=== PATIENT | female | born 1985 | race Caucasian/White ===

== ENCOUNTER 2017-11-23 06:10 | Inpatient (IN) | payer MEDICAID ==
[2017-11-23] MEDS ORDERED: LACTATED RINGER'S 1,000 ML IV (07:00)
[2017-11-23 07:11] LABS: ADD MAN DIFF? NO
[2017-11-23] MEDS ORDERED: AMPICILLIN 2 GM/NS (PMX) 100 ML (07:11)
[2017-11-23] MEDS ORDERED: CARBOPROST 250 MCG INJ IM ×2 (07:30→15:00)
[2017-11-23] MEDS ORDERED: MISOPROSTOL 200 MCG TAB PR ×2 (07:30→15:00)
[2017-11-23] MEDS ORDERED: METHYLERGONOVINE 0.2 MG INJ IM ×2 (07:30→15:00)
[2017-11-23 07:34] LABS: INR 0.96; PROTIME 12.9 Sec (11.9-14.9)
[2017-11-23 07:35] LABS: PARTIAL THROMBOPLASTIN TIME 30.2 Sec (25.0-35.0)
[2017-11-23] MEDS: AMPICILLIN 2 GM/NS (PMX) 100 ML IV (07:38)
[2017-11-23] MEDS: LACTATED RINGER'S 1,000 ML IV ×3 (07:38→14:57)
[2017-11-23] MEDS ORDERED: morphine SULFATE/PF (10 MG/10 ML) INJ (07:40)
[2017-11-23] MEDS ORDERED: METOCLOPRAMIDE 10 MG INJ (07:41)
[2017-11-23] MEDS ORDERED: OXYTOCIN 10 UNIT INJ (07:41)
[2017-11-23] MEDS ORDERED: FAMOTIDINE 20 MG INJ (07:41)
[2017-11-23 08:05] LABS: GLUCOSE 70 mg/dl (70-220)
[2017-11-23 08:18] LABS: WHITE BLOOD COUNT 9.5 10^3/ul (4.8-10.8)
[2017-11-23 08:18] LABS: BASOPHILS % 0.2 % (0.0-2.0); EOSINOPHILS # 0.1 10^3/ul (0.0-0.5); EOSINOPHILS % 0.6 % (0.0-7.0); HEMATOCRIT 37.7 % (37.0-47.0); HEMOGLOBIN 12.7 g/dl (12.0-16.0); LYMPHOCYTES # 2.2 10^3/ul (0.8-2.9); LYMPHOCYTES % 23.5 % (15.0-51.0); MEAN CORPUSCULAR HEMOGLOBIN 29.4 pg (29.0-33.0); MEAN CORPUSCULAR HGB CONC 33.7 g/dl (32.0-37.0); MEAN CORPUSCULAR VOLUME 87.3 fl (82.0-101.0); MONOCYTE # 0.6 10^3/ul (0.3-0.9); MONOCYTES % 5.8 % (0.0-11.0); NEUTROPHIL # 6.6 10^3/ul (1.6-7.5); NEUTROPHILS % 69.5 % (39.0-77.0); PLATELET COUNT 226 10^3/UL (140-415); RED BLOOD COUNT 4.32 10^6/ul (4.20-5.40); RED CELL DISTRIBUTION WIDTH 14.7 % (11.5-14.5)
[2017-11-23] MEDS: METOCLOPRAMIDE 10 MG INJ IV (08:30)
[2017-11-23] MEDS: ONDANSETRON 4 MG INJ IV (08:30)
[2017-11-23] MEDS: FAMOTIDINE 20 MG INJ IV (08:31)
[2017-11-23 08:34] LABS: HEPATITIS B SURFACE ANTIGEN NEGATIVE (NEGATIVE)
[2017-11-23] MEDS ORDERED: BUPIVACAINE 0.75%/DEXT (SPINAL) 2 ML INJ (08:46)
[2017-11-23] MEDS: CEFAZOLIN 2 GM/50 ML (PMX) 50 ML IV ×2 (09:00→11:24)
[2017-11-23] MEDS ORDERED: HYDROmorphONE (0.2 MG/ML) 10ML SYG IV (10:00)
[2017-11-23] MEDS ORDERED: FENTAnyl 50 MCG/ML VIAL IV ×2 (10:00)
[2017-11-23] MEDS ORDERED: MEPERIDINE 25 MG INJ IV (10:00)
[2017-11-23] MEDS ORDERED: METOCLOPRAMIDE 10 MG INJ IV (10:00)
[2017-11-23] MEDS ORDERED: KETOROLAC 30 MG INJ IV (10:00)
[2017-11-23] MEDS ORDERED: ONDANSETRON 4 MG INJ IV ×2 (10:00→15:00)
[2017-11-23] MEDS: HYDROmorphONE (0.2 MG/ML) 10ML SYG IV (11:07)
[2017-11-23] MEDS: DIPHENHYDRAMINE 50 MG INJ IV (11:08)
[2017-11-23 11:22] LABS: ADD UMIC NO; UR ASCORBIC ACID NEGATIVE (NEGATIVE); UR BILIRUBIN (Dip) NEGATIVE (NEGATIVE); UR BLOOD (Dip) NEGATIVE (NEGATIVE); UR CLARITY CLEAR (CLEAR); UR COLOR STRAW (YELLOW); UR GLUCOSE (Dip) NEGATIVE (NEGATIVE); UR KETONES (Dip) NEGATIVE (NEGATIVE); UR LEUKOCYTE ESTERASE (Dip) NEGATIVE Leu/ul (NEGATIVE); UR NITRITE (Dip) NEGATIVE (NEGATIVE); UR SPECIFIC GRAVITY (Dip) 1.006 (1.003-1.030); UR TOTAL PROTEIN (Dip) NEGATIVE (NEGATIVE); UR UROBILINOGEN (Dip) NEGATIVE (NEGATIVE)
[2017-11-23] MEDS: OXYTOCIN 30 UNITS/LR 500 ML IV ×3 (11:28→23:15)
[2017-11-23 14:57] LABS: RAPID PLASMA REAGIN NONREACTIVE (NR)
[2017-11-23] MEDS ORDERED: DIPHENHYDRAMINE 50 MG INJ IV (15:00)
[2017-11-23] MEDS ORDERED: ZOLPIDEM 5 MG TAB PO (15:00)
[2017-11-23] MEDS ORDERED: HYDROmorphONE 0.5 MG/0.5 ML SYG IV (15:00)
[2017-11-23] MEDS ORDERED: NALOXONE (0.4 MG/ML) INJ IV (15:00)
[2017-11-23] MEDS ORDERED: NALBUPHINE HCL (10 MG/1 ML) INJ IV (15:00)
[2017-11-23] MEDS ORDERED: OXYTOCIN 30 UNITS/LR 500 ML IV (15:00)
[2017-11-23] MEDS: HYDROmorphONE 0.5 MG/0.5 ML SYG IV ×2 (16:35→21:11)
[2017-11-23] MEDS: LANOLIN 7 GM TUBE TOP (16:35)
[2017-11-23] MEDS: SENNA/DOCUSATE NA (8.6MG/50MG) TAB PO (21:00)
[2017-11-24] MEDS: HYDROmorphONE 0.5 MG/0.5 ML SYG IV ×3 (01:53→09:01)
[2017-11-24] MEDS: LACTATED RINGER'S 1,000 ML IV ×2 (06:57→22:57)
[2017-11-24 08:46] LABS: ADD MAN DIFF? NO
[2017-11-24 08:53] LABS: BASOPHILS % 0.2 % (0.0-2.0); EOSINOPHILS % 0.2 % (0.0-7.0); HEMOGLOBIN 10.8 g/dl (12.0-16.0); LYMPHOCYTES # 1.6 10^3/ul (0.8-2.9); LYMPHOCYTES % 13.5 % (15.0-51.0); MEAN CORPUSCULAR HEMOGLOBIN 29.8 pg (29.0-33.0); MEAN CORPUSCULAR HGB CONC 33.8 g/dl (32.0-37.0); MEAN CORPUSCULAR VOLUME 88.2 fl (82.0-101.0); MEAN PLATELET VOLUME 11.4 fl (7.4-10.4); MONOCYTE # 0.7 10^3/ul (0.3-0.9); MONOCYTES % 5.4 % (0.0-11.0); NEUTROPHIL # 9.7 10^3/ul (1.6-7.5); NEUTROPHILS % 80.4 % (39.0-77.0); PLATELET COUNT 186 10^3/UL (140-415); RED BLOOD COUNT 3.63 10^6/ul (4.20-5.40); RED CELL DISTRIBUTION WIDTH 14.9 % (11.5-14.5)
[2017-11-24] MEDS: SENNA/DOCUSATE NA (8.6MG/50MG) TAB PO ×2 (09:39→19:44)
[2017-11-24] MEDS: OXYCODONE/ACETAMINOPHEN (5/325) TAB PO ×3 (11:50→20:36)
[2017-11-24] MEDS: IBUPROFEN 800 MG TAB PO ×2 (13:50→23:41)
[2017-11-24] MEDS ORDERED: MEASLES,MUMPS,RUBELLA VACCINE INJ SC* (20:00)
[2017-11-24] MEDS: MAGNESIUM HYDROXIDE 30ML CUP PO (21:44)
[2017-11-25] MEDS: OXYCODONE/ACETAMINOPHEN (5/325) TAB PO (02:55)
[2017-11-25] MEDS: IBUPROFEN 800 MG TAB PO ×3 (07:45→21:25)
[2017-11-25] MEDS: SENNA/DOCUSATE NA (8.6MG/50MG) TAB PO ×2 (08:20→21:25)
[2017-11-25 17:57] LABS: ADD UMIC YES; UR ASCORBIC ACID NEGATIVE (NEGATIVE); UR BILIRUBIN (Dip) NEGATIVE (NEGATIVE); UR BLOOD (Dip) 3+ mg/dL (NEGATIVE); UR CLARITY SLIGHTLY CLOUDY (CLEAR); UR COLOR YELLOW (YELLOW); UR GLUCOSE (Dip) NEGATIVE (NEGATIVE); UR KETONES (Dip) NEGATIVE (NEGATIVE); UR LEUKOCYTE ESTERASE (Dip) 1+ Leu/ul (NEGATIVE); UR NITRITE (Dip) NEGATIVE (NEGATIVE); UR RBC > 182 /HPF (0-5); UR SPECIFIC GRAVITY (Dip) 1.013 (1.003-1.030); UR SQUAMOUS EPITHELIAL CELL MODERATE /HPF (FEW); UR TOTAL PROTEIN (Dip) 1+ mg/dl (NEGATIVE); UR UROBILINOGEN (Dip) NEGATIVE (NEGATIVE); UR WBC 30 /HPF (0-5)
[2017-11-25] MEDS ORDERED: MAGNESIUM HYDROXIDE 30ML CUP PO (20:30)
[2017-11-26] MEDS: IBUPROFEN 800 MG TAB PO ×2 (05:39→13:25)
[2017-11-26] MEDS: DIPHTH/TET/ACEL PERTUSS (ADULT) 0.5 ML VIAL IM* (07:15)
[2017-11-26] MEDS: OXYCODONE/ACETAMINOPHEN (5/325) TAB PO (07:32)
[2017-11-26] MEDS: SENNA/DOCUSATE NA (8.6MG/50MG) TAB PO (09:10)
[2017-11-26] MEDS: MEASLES,MUMPS,RUBELLA VACCINE INJ SC* (10:16)
[2017-11-26] MEDS: LANOLIN 7 GM TUBE TOP (12:17)
== END 2017-11-26 16:06 | disposition home or self-care (01) | DRG 765 ==
LOC: OBT 06:10 → L-D 06:10 → OBT 07:06 → L-D 07:08 → PP1 13:16
PROC: 10D00Z1 Extraction of Products of Conception, Low, Open Approach (ICD-10-PCS; principal; 2017-11-23 08:00)
PROC: 0UL70ZZ Occlusion of Bilateral Fallopian Tubes, Open Approach (ICD-10-PCS; 2017-11-23 08:00)
PROC: 3E033VJ Introduction of Other Hormone into Peripheral Vein, Percutaneous Approach (ICD-10-PCS; 2017-11-23 08:00)
DX: O34.211 Maternal care for low transverse scar from previous cesarean delivery (principal); O24.12 Pre-existing type 2 diabetes mellitus, in childbirth; E11.9 Type 2 diabetes mellitus without complications; Z30.2 Encounter for sterilization; Z3A.37 37 weeks gestation of pregnancy; Z37.0 Single live birth
CPT/HCPCS: 81001; 81003; 82947; 85025; 85610; 85730; 86592; 86850; 86900; 86901; 87086; 87340; 88302; 93970; 99464